=== PATIENT | female | born 1980 ===

== ENCOUNTER 2020-08-20 13:25 | Outpatient (CLI) | payer BC ==
--- NOTE | 2020-08-20 14:21 | Mammography Report ---
DIGITAL DIAGNOSTIC MAMMOGRAM WITH CAD CONVENTIONAL, 08/20/2020 CLINICAL INFORMATION / INDICATION: Patient presents for six-month follow-up of a probably benign foca l asymmetric density in the right breast. ABNORMAL MAMMO TECHNIQUE: Digital right mammographic imaging was performed. This examination was interpreted with the benefit of Computer-aided Detection analysis. COMPARISON: Prior mammograms 12/10/2019 and 10/03/2018 FINDINGS: Breast Density: The breasts are heterogeneously dense, which may obscure small masses. No dominant mass, suspicious calcifications or architectural distortion in the right breast. The previously described focal asymmetric density in the upper outer quadrant of the right breast is again less conspicuous compared with prior mammogram from 12/2019, and is most compatible with overlap ping fibroglandular tissue. IMPRESSION: 1. No suspicious mammographic abnormality identified in the right breast. The previously described fo anali asymmetric density is again less conspicuous compared with prior mammogram and is most compatible with overlapping fibroglandular tissue. Follow up recommendation: Back to schedule. BI-RADS Category 1: Negative. A "normal" or negative report should not discourage follow up or biopsy of a clinically significant f inding. A written summary of these findings will be mailed to the patient. The patient will be entered into a mammography reporting system which will generate a reminder letter for the patient's next appointmen t at the appropriate interval. According to the [employer], yearly mammograms are recommended starting at age 40 and continuing as long as a woman is in good health. Breast MRI is recommended for women with an loree roximately 20-25% or greater lifetime risk of breast cancer, including women with a strong family his tory of breast or ovarian cancer and women who have been treated for Hodgkin's disease. Signer Name: Yaima Patiño MD Signed: 08/20/2020 2:16 PM Workstation Name: [id number]
== END 2020-08-20 13:26 | disposition home or self-care (01) ==
LOC: SPVWC 13:25
PROVIDERS: ATTEND Surgery
DX: R92.8 Other abnormal and inconclusive findings on diagnostic imaging of breast (principal)

== ENCOUNTER 2020-12-22 14:21 | Outpatient (CLI) | payer BC ==
--- NOTE | 2020-12-22 15:53 | Mammography Report ---
BILATERAL DIGITAL DIAGNOSTIC MAMMOGRAM WITH CAD CONVENTIONAL, 12/22/2020 RIGHT LIMITED BREAST ULTRASOUND CLINICAL INFORMATION / INDICATION: Patient presents for follow-up of probably benign findings in the right breast. Patient is currently due for bilateral examination. ABNORMAL MAMMO TECHNIQUE: Digital bilateral mammographic imaging was performed. Limited ultrasound was performed. Th is examination was interpreted with the benefit of Computer-Aided Detection (CAD) analysis. COMPARISON: Prior mammograms 12/10/2019 and 10/03/2018 FINDINGS: Breast Density: The breasts are heterogeneously dense, which may obscure small masses. MAMMOGRAPHIC FINDINGS: No dominant mass, suspicious calcifications, or architectural distortion in th e right breast. The previously seen focal asymmetric density in the upper outer quadrant of the right breast is no longer visualized compatible with overlapping fibroglandular tissue. There is, however, a new 10 mm nodular density in the central left breast, middle depth, which requires further evaluat ion. ULTRASOUND FINDINGS: Targeted ultrasound evaluation was performed of the area of interest. Right breast: Targeted ultrasound of the upper outer quadrant of the right breast reveals a few foci of benign fibrocystic change in the 9:00 position located 5 cm from the nipple, each measuring up to approximately 9 mm. No suspicious solid lesion identified. IMPRESSION: 1. Benign fibrocystic change in the right breast. 2. A new nodular density is seen in the central left breast which requires further evaluation with ta rgeted ultrasound and additional views if needed. The patient had her right breast ultrasound perform ed before her mammogram today and was unable to stay following the mammogram for left breast ultrasou nd, so she will have to return on another day for this study. Follow up recommendation: Ultrasound BI-RADS Category 0: Incomplete. Needs additional imaging evaluation and/or prior mammograms for brittny stapleton. A "normal" or negative report should not discourage follow up or biopsy of a clinically significant f inding. A written summary of these findings will be mailed to the patient. The patient will be entered into a mammography reporting system which will generate a reminder letter for the patient's next appointmen t at the appropriate interval. According to the [employer], yearly mammograms are recommended starting at age 40 and continuing as long as a woman is in good health. Breast MRI is recommended for women with an loree roximately 20-25% or greater lifetime risk of breast cancer, including women with a strong family his tory of breast or ovarian cancer and women who have been treated for Hodgkin's disease. Signer Name: Yaima Patiño MD Signed: 12/22/2020 3:48 PM Workstation Name: [id number]
== END 2020-12-22 14:22 | disposition home or self-care (01) ==
LOC: SPVWC 14:21
PROVIDERS: ATTEND Surgery
DX: N60.11 Diffuse cystic mastopathy of right breast (principal); N64.89 Other specified disorders of breast; R92.8 Other abnormal and inconclusive findings on diagnostic imaging of breast
CPT/HCPCS: 77066